=== PATIENT | male | born 1970 | race Hispanic/Latino ===

== ENCOUNTER 2020-04-03 11:24 | Emergency (ER) | payer BC, OTHER ==
[2020-04-03 12:29] VITALS: BP 158/99
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
[2020-04-03] MEDS ORDERED: ACETAMINOPHEN 325 MG TAB PO ONE (15:25)
== END 2020-04-03 16:20 | disposition home or self-care (01) ==
LOC: ED 11:24
DX: S16.1XXA Strain of muscle, fascia and tendon at neck level, initial encounter (principal); S09.90XA Unspecified injury of head, initial encounter; M25.512 Pain in left shoulder; Z79.899 Other long term (current) drug therapy; V49.49XA Driver injured in collision with other motor vehicles in traffic accident, initial encounter; Y93.89 Activity, other specified; Y92.488 Other paved roadways as the place of occurrence of the external cause; Y99.8 Other external cause status
CPT/HCPCS: 70450; 72040